=== PATIENT | male | born 1975 | race Caucasian/White ===

== ENCOUNTER 2023-10-23 10:07 | Day surgery (SDC) | payer OTHER ==
--- NOTE | 2023-10-23 10:49 | ED Physician Documentation ---
PD HPI ABD PAIN - Stated complaint Stated Complaint: ABD PX - Chief complaint Chief Complaint: Abd Pain - History obtained from History obtained from: Patient - History of Present Illness Timing - onset: How many days ago (2 1/2) Timing - duration: Days (2 1/2) Timing - details: Abrupt onset, Still present (worsening today) Quality: Cramping, Aching, Pain Review of Systems Constitutional: denies: Fever, Chills Nose: denies: Rhinorrhea / runny nose, Congestion Throat: denies: Sore throat Respiratory: denies: Cough GI: denies: Diarrhea, Bloody / black stool PD PAST MEDICAL HISTORY - Past Medical History Past Medical History: No - Past Surgical History HEENT: Other - Present Medications Home Medications: Ambulatory Orders Medication Instructions Recorded Confirmed HYDROcod/ACETAM 5/325 [[place] 5/325] 1 each PO Q6H PRN #30 tablet 10/23/23 Ondansetron Odt [Zofran Odt] 4 mg PO Q6H PRN #15 tablet 10/23/23 - Allergies Allergies/Adverse Reactions: Allergies Allergy/AdvReac Type Severity Reaction Status Date / Time Penicillins Allergy Rash Verified 10/23/23 10:22 - Social History Does the pt smoke?: No Smoking Status: Never smoker Does the pt drink ETOH?: Yes Does the pt have substance abuse?: No - Immunizations Immunizations are current?: Yes - POLST Patient has POLST: No PD ED PE NORMAL - Vitals Vital signs reviewed: Yes - General General: Alert and oriented X 3, Well developed/nourished, Other (appears in signicant pain. ) - Cardiac Cardiac: RRR, No murmur - Respiratory Respiratory: Clear bilaterally - Abdomen Abdomen: Normal bowel sounds, Soft, Non distended, Other (Significantly tender in the right upper quadrant with percussion and rebound tenderness. There is some referred tenderness from the mid abdomen to the right upper quadrant. Lo wer abdomen is nontender. No CVA tenderness.) Results - Vitals Vitals: Vital Signs - 24 hr 10/23/23 10:18 Temperature 36.6 C Heart Rate 53 L Respiratory 20 Rate Blood Pressure 130/67 O2 Saturation 100 Oxygen O2 Source Room air - Labs Labs: Laboratory Tests 10/23/23 10/23/23 10/23/23 10:44 11:00 11:00 WBC 14.3 H RBC 5.09 Hgb 14.4 Hct 43.1 MCV 84.7 MCH 28.3 MCHC 33.4 RDW 14.2 Plt Count 284 MPV 10.1 Neut # (Auto) 10.7 H Lymph # (Auto) 1.7 Dolores # (Auto) 1.6 H Eos # (Auto) 0.1 Baso # (Auto) 0.1 Absolute Nucleated RBC 0.00 Nucleated RBC % 0.0 Sodium 139 Potassium 3.5 Chloride 106 Carbon Dioxide 25 Anion Gap 8.0 BUN 16 Creatinine 0.8 Estimated GFR (MDRD) 103 Glucose 135 H Calcium 10.6 H Magnesium 1.7 Total Bilirubin 0.7 AST 18 ALT 17 Alkaline Phosphatase 60 Total Protein 8.1 Albumin 4.8 Globulin 3.3 Albumin/Globulin Ratio 1.5 Lipase 11 - Rads (name of study) RUQ US Relevant Findings:: Prelim report reviewed, EMP independent interpretation of test, Other (US Tech: distended gallbladder with sludge and stones, thickened wall to 5 mm and pericholcystitc fluid. ) PD Medical Decision Making - ED course Complexity details: reviewed results, considered differential, d/w patient ED course: The patient has had 2 and half days of right upper quadrant abdominal pain starting milder and rapidly worsening to a moderate level. Its become much more severe overnight into this morning. Went to the walk-in clinic and referred promptly to the ER for further and valuation. The patient denies any prior similar episodes. He denies any injury to the area. He has not had any diarrhea or change in stool. He states he is only an occasional alcohol drinker. No regular cholesterol medicine or blood pressure medicines nor acid reducing medicines. No prior abdominal surgeries. He is having nausea and vomiting starting overnight into this morning. He appears significantly uncomfortable in the room. He is given IV fluids as well as medications of ondansetron, Toradol, Dilaudid. These do help with his pain to a moderate degree. He was given a repeat dose of hydromorphone with better improvement. His symptoms sound most likely gallbladder and so I started with ultrasound. His blood test showed an elevated white count but normal LFTs and electrolytes and kidney function. Lipase was also normal excluding pancreatitis. The ultrasound did show signs of acute cholecystitis. He was still having significant pain and required repeat dose of antiemetic and pain medicine. Given the persistence of pain only moderately helped with IV medicines along with the findings of acute cholecystitis, I talked with the patient about potential options including acute cholecystectomy. They were in favor of that. I called Dr. Mathis who is on-call for surgery who came to evaluate the patient to discuss options and shared agreement was to go to the OR for cholecystectomy. The patient is allergic to penicillin. I give a dose of levofloxacin IV because of the elevated white count and concern of early infection. The patient will kept NPO. He and his had plans for going on a trip to [place] I believe this coming week. They are wondering about that. I did write a note for them to the airline to say he was unable to travel should they opt to change their plans for it. In the opinion of Dr. Mathis, he thought it would make more sense to not try to travel that soon. The patient was maintained with IV fluids and repeat medications while the OR crew was readying for him. Departure - Departure Disposition: ED Transfer to [facility] Clinical Impression: Acute cholecystitis due to biliary calculus, Right upper quadrant abdominal pain Condition: Stable Record reviewed to determine appropriate education?: Yes
[2023-10-23 10:53] LABS: BASOPHILS # (AUTO) 0.1 10^3/uL (0.0-0.1); BASOPHILS % (AUTO) 0.4 %; EOSINOPHILS # (AUTO) 0.1 10^3/uL (0.0-0.7); EOSINOPHILS % (AUTO) 0.5 %; HCT - HEMATOCRIT 43.1 % (42.0-52.0); HGB - HEMOGLOBIN 14.4 g/dL (14.0-18.0); LYMPHOCYTES # (AUTO) 1.7 10^3/uL (1.5-3.5); LYMPHOCYTES % (AUTO) 12.2 %; MEAN CORPUSCULAR HEMOGLOBIN 28.3 pg (27.0-31.0); MEAN CORPUSCULAR HGB CONC 33.4 g/dL (32.0-36.0); MEAN CORPUSCULAR VOLUME 84.7 fL (80.0-94.0); MEAN PLATELET VOLUME 10.1 fL (7.4-11.4); MONOCYTES # (AUTO) 1.6 10^3/uL (0.0-1.0); MONOCYTES % (AUTO) 11.4 %; NEUTROPHILS # (AUTO) 10.7 10^3/uL (1.5-6.6); NEUTROPHILS % (AUTO) 75.2 %; PLT - PLATELET COUNT 284 10^3/uL (130-450); RED BLOOD COUNT 5.09 10^6/uL (4.70-6.10); RED CELL DISTRIBUTION WIDTH 14.2 % (12.0-15.0); WHITE BLOOD COUNT 14.3 x10^3/uL (4.8-10.8)
[2023-10-23] MEDS: DROPERIDOL 5 MG/2 ML VIAL IVP STA (11:04)
[2023-10-23] MEDS: SODIUM CHLORIDE 0.9% 1,000 ML IV STA ×2 (11:12→12:36)
[2023-10-23] MEDS: HYDROmorphone 1 MG/ML CARPUJECT IVP STA ×4 (11:12→15:35)
[2023-10-23] MEDS: KETOROLAC 15 MG/ML VIAL IVP STA (11:12)
[2023-10-23 11:20] LABS: ALBUMIN 4.8 g/dL (3.2-5.5); ALBUMIN/GLOBULIN RATIO 1.5 (1.0-2.2); BILIRUBIN,TOTAL 0.7 mg/dL (0.2-1.0); CALCIUM 10.6 mg/dL (8.5-10.3); CREATININE 0.8 mg/dL (0.6-1.3); POTASSIUM 3.5 mmol/L (3.5-4.5); TOTAL PROTEIN 8.1 g/dL (6.4-8.9)
--- NOTE | 2023-10-23 13:16 | Ultrasound Report ---
PROCEDURE: Abdomen Limited INDICATIONS: RUQ abd pain for 2 days, worsening. TECHNIQUE: Real-time focused scanning was performed of the abdomen, with image documentation. COMPARISONS: None. FINDINGS: Liver: Liver is mildly enlarged and show heterogeneously increased liver parenchymal echotexture. No solid-appearing hepatic lesion is noted. Gallbladder: Gallbladder is markedly distended and measures 12 x 5.6 x 6.2 cm in size. Stones are see n completely filling gallbladder lumen with extensive through acoustic shadowing. Gallbladder wall th ickening or pericholecystic fluid is seen. No specific sonographic Healy's sign was noted although matilde quezada has extensive right upper quadrant and epigastric pain. Biliary ducts: Intrahepatic bile ducts are non-dilated. Extrahepatic bile duct caliber measures 6 m m. Normal is 6-7 mm or less in diameter, or 10 mm or less post-cholecystectomy. Pancreas: Visualized portions of the pancreas are sonographically normal. Right kidney: Normal in size and echotexture. Right kidney measures 11.2 cm long. No hydronephrosis or nephrolithiasis. No solid masses. No complex renal cystic lesions which require follow-up. IVC: Intrahepatic inferior vena cava is patent. Miscellaneous: No free abdominal fluid. IMPRESSION: 1. Markedly distended gallbladder with cholelithiasis and sonographic findings suggestive of acute ch olecystitis. 2. No biliary ductal dilatation. 3. Hepatic steatosis. No discrete hepatic lesion. Reviewed by: Gustabo Noguera MD on 10/23/2023 1:14 PM PDT Approved by: Gustabo Noguera MD on 10/23/2023 1:14 PM PDT Station ID: [id number]
--- NOTE | 2023-10-23 14:55 | HISTORY & PHYSICAL EXAMINATION ---
Chief Complaint - Chief Complaint Chief Complaint: upper abdominal pain and nausea History of Present Illness - History Obtained From Records Reviewed: yes History obtained from: pt Exam Limitations: none - History of Present Illness HPI Comment/Other: upper abdominal pain and nausea x 3 days. pain goes to back. no similar symptoms. has not eaten since last pm. mother had her gallbladder out. no signs or symptoms of choledocholithiasis History - Past Surgical History HEENT: reports: Other - POLST Patient has POLST: No Meds/Allgy - Home Medications Home Medications: Ambulatory Orders Medication Instructions Recorded Confirmed HYDROcod/ACETAM 5/325 [[place] 5/325] 1 each PO Q6H PRN #30 tablet 10/23/23 Ondansetron Odt [Zofran Odt] 4 mg PO Q6H PRN #15 tablet 10/23/23 - Allergies Allergies/Adverse Reactions: Allergies Allergy/AdvReac Type Severity Reaction Status Date / Time Penicillins Allergy Rash Verified 10/23/23 10:22 Review of Systems - Other Findings Other Findings: 10 pt ros as above otherwise unremarkable Exam - Vital Signs Vital Signs: Vital Signs x48h Temp Pulse Resp BP Pulse Ox 10/23/23 10:18 36.6 C 53 L 20 130/67 100 - Physical Exam General Appearance: positive: No acute distress, Alert Eyes Bilateral: positive: PERRL, EOMI ENT: positive: No signs of dehydration Neck: positive: No JVD, Trachea midline Respiratory: positive: No respiratory distress Cardiovascular: positive: Regular rate & rhythm Abdomen: positive: Other (right upper quadrant tenderness) Neurologic/Psychiatric: positive: Oriented x3 Conclusion/Plan - Problem List (1) Acute cholecystitis due to biliary calculus Conclusion/Plan: plan neil ravi held and consent obtained - Lab Results Fish Bones: 10/23/23 10:44 10/23/23 11:00
[2023-10-23] MEDS ORDERED: LIDOCAINE-PF 2% 10 ML AMP SUBQ ONE (15:25)
[2023-10-23] MEDS ORDERED: PROPOFOL 200 MG/20 ML VIAL IVP ONE (15:25)
[2023-10-23] MEDS ORDERED: fentaNYL 100 MCG/2 ML VIAL ONE ×2 (15:26→19:17)
[2023-10-23] MEDS ORDERED: MIDAZOLAM 2 MG/2 ML VIAL ONE (15:26)
[2023-10-23] MEDS ORDERED: ROCURONIUM 50 MG/5 ML VIAL ONE (15:26)
[2023-10-23] MEDS: ONDANSETRON 4 MG/2 ML VIAL IVP STA (15:35)
[2023-10-23] MEDS ORDERED: METOCLOPRAMIDE 10 MG/2 ML VIAL IVP PRN (15:53)
[2023-10-23] MEDS ORDERED: fentaNYL 100 MCG/2 ML VIAL IVP PRN (15:53)
[2023-10-23] MEDS ORDERED: NALOXONE 0.4 MG/ML VIAL IVP PRN (15:53)
[2023-10-23] MEDS ORDERED: ONDANSETRON 4 MG/2 ML VIAL IVP PRN ×2 (15:53→19:43)
[2023-10-23] MEDS ORDERED: ATROPINE ABBOJECT 1 MG/10 ML SYRINGE IVP PRN (15:53)
[2023-10-23] MEDS ORDERED: MORPHINE 2 MG/ML CARPUJECT IVP PRN (15:53)
[2023-10-23] MEDS ORDERED: HYDROmorphone 0.5 MG/0.5 ML SYRINGE IVP PRN ×2 (15:53→19:43)
[2023-10-23] MEDS ORDERED: ePHEDrine 50 MG/ML VIAL IVP PRN (15:53)
--- NOTE | 2023-10-23 15:53 | ANESTHESIA ---
Pre-Anesthesia VS, & Labs - Diagnosis CHOLECYSTITIS - Procedure LAP MAINE Vital Signs: Temp Pulse Resp BP Pulse Ox O2 Flow Rate 36.6 C 53 L 20 130/67 100 10/23/23 10:18 10/23/23 10:18 10/23/23 10:18 10/23/23 10:18 10/23/23 10:18 Height: 6 ft 1 in Weight (kg): 131.542 kg Body Mass Index: 38.2 BMI Classification: Obese - NPO >8 hours - Lab Results Current Lab Results: Laboratory Tests 10/23/23 11:00: Magnesium 1.7 10/23/23 11:00: Sodium 139, Potassium 3.5, Chloride 106, Carbon Dioxide 25, Anion Gap 8.0, BUN 16, Creatinine 0.8, Estimated GFR (MDRD) 103, Glucose 135 H, Calcium 10.6 H, Total Bilirubin 0.7, AST 18, ALT 17, Alkaline Phosphatase 60, Total Protein 8.1, Albumin 4.8, Globulin 3.3, Albumin/Globulin Ratio 1.5, Lipase 11 10/23/23 10:44: WBC 14.3 H, RBC 5.09, Hgb 14.4, Hct 43.1, MCV 84.7, MCH 28.3, MCHC 33.4, RDW 14.2, Plt Count 284, MPV 10.1, Neut # (Auto) 10.7 H, Lymph # (Auto) 1.7, [place] # (Auto) 1.6 H, Eos # (Auto) 0.1, Baso # (Auto) 0.1, Absolute Nucleated RBC 0.00, Nucleated RBC % 0.0 Lab results reviewed: Yes Fish Bones: 10/23/23 10:44 10/23/23 11:00 Home Medications and Allergies Allergies/Adverse Reactions: Allergies Allergy/AdvReac Type Severity Reaction Status Date / Time Penicillins Allergy Rash Verified 10/23/23 10:22 Anes History & Medical History - Anesthetic History Anesthesia Complications: reports: No previous complications Family history of Anesthesia Complications: Denies - Medical History Cardiovascular: reports: None, Hypertension (NO MEDS, DENIES CP/SOB, NV, ARRHYTHMIA) Pulmonary: reports: Sleep apnea, CPAP use Gastrointestinal: reports: None, Cholelithiasis Smoking Status: Never smoker Psychosocial: reports: No issues indicated - Surgical History Eyes Ears Nose Throat (EENT): reports: Other Exam General: Alert, Oriented x3 Dental: WNL Mouth Openin Fingerbreadth Neck Mobility: Normal Mallampati classification: II Thyromental Distance: 4-6 cm Respiratory: Lungs clear Cardiovascular: Regular rate Plan Anesthesia Type: General Consent for Procedure(s) Verified and Reviewed: Yes Code Status: Attempt Resuscitation ASA classification: 2-Mild systemic disease Is this case an emergency?: Yes
[2023-10-23] MEDS ORDERED: LACTATED RINGERS 1,000 ML IV SCH (16:00)
[2023-10-23] MEDS ORDERED: BUPIVACAINE 0.25% PF 30 ML VIAL ONE ×2 (16:01→18:59)
[2023-10-23] MEDS ORDERED: ceFAZolin 1 GM VIAL ONE (16:02)
[2023-10-23] MEDS: BUPIVACAINE 0.5% PF 30 ML VIAL INFIL ONE ×2 (17:06)
[2023-10-23] MEDS ORDERED: DEXAMETHASONE 4 MG/ML VIAL ONE (17:17)
[2023-10-23] MEDS ORDERED: ONDANSETRON 4 MG/2 ML VIAL ONE (17:17)
[2023-10-23] MEDS ORDERED: HYDROmorphone 1 MG/ML CARPUJECT ONE (17:24)
[2023-10-23] MEDS ORDERED: SODIUM CHLORIDE 0.9% 10 ML VIAL IVP ONE (17:24)
[2023-10-23] MEDS ORDERED: SUGAMMADEX 200 MG/2 ML VIAL IVP ONE (18:26)
[2023-10-23] MEDS: LACTATED RINGERS 1,000 ML IV ONE (19:32)
--- NOTE | 2023-10-23 19:55 | OPERATIVE REPORT ---
Operative Report - General Procedure Date: 10/23/23 Planned Procedure: lap mary Pre-Op Diagnosis: acute cholecystitis Procedure Performed: lap mary Post Op Diagnosis: acute cholecystitis, hemorrhagic - Procedure Note Primary Surgeon: archie rojas Anesthesia Technique: General ET tube, Local Pathology: gb Estimated Blood Loss (mL): 25 Drain/Tube Type: Other (none) Indications: severe pain and nausea Findings: as above. thickened cystic duct. opened and no stones Complications: none - Other Other Information/Narrative: The patient was properly identified brought to the operating room and placed in supine position. Sequential compression devices were placed. General endotracheal anesthesia was induced. He was prepped and draped in a sterile fashion and given preoperative antibiotics. Local anesthetic was given to incision areas. A 2 and half centimeter incision was made just cephalad and right lateral of the umbilicus. Dissection proceeded down to the fascia. Fascia was incised lifted upwards and abdomen entered with a Veress needle. CO2 was insufflated to a pressure of 15. An 11 mm trocar was placed with 30 degree scope under vision. There was no evidence of injury from Veress needle or trocar placement. Under direct vision two 5 mm trocars were placed in the right upper quadrant and an 11 mm trocar was placed in the epigastrium. Patient's gallbladder was hemorrhagic markedly enlarged and markedly tense. It was aspirated to allow retraction. A few small stones came out of the hole at the fundus of the gallbladder. The gallbladder was partially mobilized at its lateral attachments to mobilize the gallbladder further away from the retroperitoneum and duodenum. Gallbladder was peeled away from the liver creating a Large bare cystic plate area. The cystic artery was clipped at the gallbladder x 2 slightly proximal and sharply divided. The cystic duct was markedly thickened. Cystic duct was inspected from right lateral and left lateral. The cystic duct was opened. There were no apparent stones however the cystic duct continue to feel quite hard with possible stone within it. The cystic duct was further mobilized down towards the common bile duct. Where the cystic duct was quite firm and additional hole was placed within it. There was no stone within the cystic duct. The cystic duct was then tied with a 2-0 silk and further clipped. Gallbladder was placed in an Endo Catch bag. Gallbladder was quite enlarged and the bag was tense holding the gallbladder. The gallbladder was brought out through an enlarged epigastric trocar site. The abdomen is thoroughly irrigated. Surgicel was placed at the liver bed area. Trocars were removed under direct vision after closure of the periumbilical tr ocar site with a [id number] 0 Vicryl. Hemostasis again assured. The epigastric incision site was closed with a running 0 Vicryl suture. Skin was closed with buried interrupted 4-0 Monocryl. Dressings were applied. He tolerated the procedure well was awakened and brought to recovery in good condition.
[2023-10-23] MEDS: levoFLOXacin 500 MG/100 ML 500 MG/100 ML BAG IV STA (23:02)
[2023-10-23] MEDS: LACTATED RINGERS 1,000 ML IV STA (23:02)
--- NOTE | 2023-10-24 05:54 | ANESTHESIA POST OP EVALUATION ---
Anesthesia Post Eval - Post Anesthesia Eval Vitals: Last Vital Signs Temp 38.0 C H 10/24/23 02:13 Pulse 89 10/24/23 02:13 Resp 20 10/24/23 02:13 BP 120/63 10/24/23 02:13 Pulse Ox 94 10/24/23 02:13 O2 Flow Rate CV Function Including HR & BP: Stable Pain Control: Satisfactory Nausea & Vomiting: Negative Mental Status: Baseline Respiratory Status: Airway Patent Hydration Status: Satisfactory Anesthesia Complications: None
[2023-10-24 07:30] VITALS: BP 122/72; O2SAT 94
[2023-10-24] MEDS: HYDROcod/ACETAM 5/325 MG TABLET PO PRN (09:00)
[2023-10-24] MEDS: ACETAMINOPHEN 500 MG TABLET PO PRN (09:00)
[2023-10-24] MEDS: levoFLOXacin 500 MG/100 ML 500 MG/100 ML BAG IV STA (09:01)
[2023-10-24 09:22] LABS: BILIRUBIN,URINE NEGATIVE (NEGATIVE); GLUCOSE, URINE (UA) NEGATIVE (NEGATIVE); KETONES,URINE (UA) NEGATIVE (NEGATIVE); LEUKOCYTE ESTERASE, URINE NEGATIVE (NEGATIVE); NITRITE,URINE NEGATIVE (NEGATIVE); OCCULT BLOOD,URINE NEGATIVE (NEGATIVE); PROTEIN,URINE NEGATIVE (NEGATIVE); UROBILINOGEN,URINE 0.2 (NORMAL) E.U./dL (NORMAL)
[2023-10-24 09:24] LABS: CLARITY,URINE CLEAR (CLEAR)
== END 2023-10-24 11:25 | disposition home or self-care (01) ==
LOC: ED 10:07 → SDS 14:40 → MS3 19:54 → SDS 10-24 11:25
PROVIDERS: ATTEND Surgery
PROC: 0FT44ZZ Resection of Gallbladder, Percutaneous Endoscopic Approach (ICD-10-PCS; principal; 2023-10-23 16:30)
DX: K80.12 Calculus of gallbladder with acute and chronic cholecystitis without obstruction (principal); G47.30 Sleep apnea, unspecified; E66.9 Obesity, unspecified; Z68.38 Body mass index [BMI] 38.0-38.9, adult
CPT/HCPCS: 36415; 47562; 76705; 80053; 81003; 83690; 83735; 85025; 96361; 96374; 96375; 96376; 99285; A9270; J1170; J7120; 81001; 87086